=== PATIENT | male | born 1990 | race Caucasian/White ===

== ENCOUNTER 2020-10-17 20:18 | Emergency (ER) | payer BC, SELFPAY ==
[2020-10-17 20:33] VITALS: BP 122/90; PULSE 120; RESP 16; TEMP 36; O2SAT 100
--- NOTE | 2020-10-17 20:52 | ED.GENADULT ---
HPI - General Adult General Chief complaint: Unspecified <Jarod Osuna PA-C - Last Filed: 10/17/20 20:55> Stated complaint: cold sweats, congestion, DUGAN, fever <Jarod Osuna PA-C - Last Filed: 10/17/20 20:55> Time Seen by Provider: 10/17/20 20:40 <Jarod Osuna PA-C - Last Filed: 10/17/20 20:55> Source: patient, family and RN notes reviewed <Jarod Osuna PA-C - Last Filed: 10/17/20 20:55> Mode of arrival: ambulatory <Jarod Osuna PA-C - Last Filed: 10/17/20 20:55> Limitations: no limitations <Jarod Osuna PA-C - Last Filed: 10/17/20 20:55> History of Present Illness HPI narrative: Patient is a 30-year-old male who presents with 3 days of not feeling well with congestion rhinorrhea nonproductive cough patient notes multiple other individuals at home with similar symptoms patient took ibuprofen just prior to arrival which she states is helping him to feel better patient denies vomiting diarrhea has not been seen for this complaint patient notes he has a primary care doctor who we will follow with <Jarod Osuna PA-C - Last Filed: 10/17/20 20:55> Related Data Allergies/adverse reactions: Allergies Allergy/AdvReac Type Severity Reaction Status Date / Time No Known Allergies Allergy Unknown Unverified 01/05/15 14:50 <Jarod Osuna PA-C - Last Filed: 10/17/20 20:55> Review of Systems Review of Systems: All systems reviewed & are unremarkable except as noted in HPI and below <Jarod Osuna PA-C - Last Filed: 10/17/20 20:55> PMFSH Social History Social History: Social History (Updated 10/17/20 @ 20:52 by Jarod Osuna PA-C) Smoking status: Never smoker <Jarod Osuna PA-C - Last Filed: 10/17/20 20:55> Exam Narrative: Exam Narrative: GENERAL: Well-appearing, well-nourished, and in no acute distress. HEAD: Normocephalic, atraumatic. EYES: PERRLA and EOMI. ENT: Nares clear, no rhinorrhea or epistaxis. Mucous membranes moist. CHEST: Clear to auscultation. No respiratory distress. No wheezes rales or rhonchi HEART: Regular rate and rhythm. No murmur heard. EXTREMITIES: Normal range of motion. No edema. SKIN: Warm, dry, no rash. NEURO: No focal deficits. Alert and oriented x3. Cranial nerves II through XII grossly intact. PSYCH: Normal mood and affect. <IRAM Hutton Last Filed: 10/17/20 20:55> Course Course Emergency Course: Patient in the room no distress aware of case findings treatment plan and diagnosis will be tested for Covid no hypoxemia clear lung sounds felt appropriate for outpatient reevaluation <Jarod Osuna PA-C - Last Filed: 10/17/20 20:55> Vital Signs Vital signs: Vital Signs Temperature 36.0 C L 10/17/20 20:33 Pulse Rate 120 H 10/17/20 20:33 Respiratory Rate 16 10/17/20 20:33 Blood Pressure 122/90 10/17/20 20:33 Pulse Oximetry 100 10/17/20 20:33 Temperature 36.8 C 10/17/20 21:26 Pulse Rate 88 10/17/20 21:26 Respiratory Rate 16 10/17/20 21:26 Blood Pressure 132/92 H 10/17/20 21:26 Pulse Oximetry 98 10/17/20 21:26 <Jarod Osuna PA-C - Last Filed: 10/17/20 20:55> Vital Signs Temperature 36.0 C L 10/17/20 20:33 Pulse Rate 120 H 10/17/20 20:33 Respiratory Rate 16 10/17/20 20:33 Blood Pressure 122/90 10/17/20 20:33 Pulse Oximetry 100 10/17/20 20:33 Temperature 36.8 C 10/17/20 21:26 Pulse Rate 88 10/17/20 21:26 Respiratory Rate 16 10/17/20 21:26 Blood Pressure 132/92 H 10/17/20 21:26 Pulse Oximetry 98 10/17/20 21:26 <Parth Ramsey MD - Last Filed: 10/18/20 03:54> Medical Decision Making MDM Narrative Medical decision making narrative: Patient with upper respiratory symptoms no distress resting comfortably in the room afebrile nontoxic-appearing no distress felt appropriate for outpatient reevaluation agreeing to follow-up as instructed <Jarod Osuna PA-C - Last Filed:
[2020-10-17 21:26] VITALS: BP 132/92; PULSE 88; RESP 16; TEMP 36.8; O2SAT 98
[2020-10-19 13:06] LABS: SARS-CoV-2 RNA PCR Positive
== END 2020-10-17 21:25 | disposition home or self-care (01) ==
PROVIDERS: Emergency Medicine Emergency Medical Services; Emergency Provider Emergency Medicine
DX: U07.1 COVID-19 (principal); J06.9 Acute upper respiratory infection, unspecified
CPT/HCPCS: 99283; C9803; U0003; U0005